=== PATIENT | female | born 1995 | race Caucasian/White ===

== ENCOUNTER 2020-06-22 11:12 | Inpatient (IN) ==
[2020-06-22] MEDS ORDERED: INSULIN REGULAR, HUMAN 1 UNIT/0.01 ML UNIT IV ONE (11:59)
[2020-06-22] MEDS ORDERED: INSULIN REGULAR, HUMAN 50 UNIT in 0.9 % SODIUM CHLORIDE 99.5 ML IV SCH ×2 (12:00→16:15)
--- NOTE | 2020-06-22 12:10 | Emergency Department Note ---
HPI General Chief complaint: Blood Sugar Problem Stated complaint: Nausea, Fatigue, Increased Thirst Time Seen by Provider: 06/22/20 11:34 Source: patient Mode of arrival: ambulatory Limitations: no limitations History of Present Illness HPI Narrative: Is a 25-year-old female patient who presents with hyperglycemia. She went to her PCPs office yesterday for bilateral ear pain and congestion and mentioned an unintentional 25 pound weight loss in the last 3 months. He checked her blood sugar and it was over 500. He called her back this morning asked her to come to the ED for evaluation. Her blood sugar is 371 on [id number] today. She denies a history of diabetes, or familial history of diabetes. She denies recent illness. The only medication she takes is spironolactone for acne. She denies polyuria or polydipsia. She states she stays hydrated drinking about 120 ounces a day routinely. Her water intake needs have not increased. She does endorse some generalized fatigue. She has been complaining of some chest palpitations over the last week. Her heart rate is in the 150s on my exam today. Related Data Home Medications Medication Instructions Recorded Confirmed spironolactone 50 mg tablet 50 mg PO BID 06/21/20 06/22/20 Previous Rx's Medication Instructions Recorded amoxicillin 500 mg capsule 500 mg PO BID #14 cap 06/21/20 fluticasone propionate 50 2 spray INTRANASAL QDAY #15.8 ml 06/21/20 mcg/actuation nasal spray,suspension Allergies Allergy/AdvReac Type Severity Reaction Status Date / Time No Known Drug Allergies Allergy Verified 06/22/20 11:25 Review of Systems ROS ROS Narrative: Narrative: All systems ED: reviewed and negative except as stated. PFSH Narrative Patient History Narrative: Narrative: Medical/Surgical/Family History All Active Problems DKA (diabetic ketoacidoses) (Acute) CARLOS (acute kidney injury) (Acute) Acute dehydration (Acute) Atrial tachycardia (Acute) Back pain (Chronic ~2016) Joint pain (Chronic ~2010) Insomnia (Chronic ~2014) Anemia (Chronic ~2010) Left wrist sprain (Acute) Medical History Anemia (Chronic ~2010) Back pain (Chronic ~2016) Insomnia (Chronic ~2014) Joint pain (Chronic ~2010) Left wrist sprain (Acute) Surgical History No pertinent past surgical history (Acute) Family History Mother Arthritis Grandmother Dementia Paternal Thyroid disease Maternal Social History Smoking Status: Never smoker Alcohol Intake Frequency: a few times a month Substance Use: does not use Exam Narrative Narrative: General: AOx3, NAD, nontoxic appearing. Pleasant and conversant. Thin HEENT: PERRLA, EOMI, normocephalic. Moist mucous membranes. Normal facies and normal dentition. Chest: Symmetric, no pain to palpation Respiratory: Lungs CTAB. No respiratory distress. Unlabored breathing. Heart: Tachycardia 150s, no M/C/R Abdomen: NT, ND, normal bowel tones. No organomegaly. Extremities: Warm and well perfused. No edema. DP 2+ bilaterally. Neuro: No focal deficits. Cranial nerves II-XII normal. Skin: Warm dry, no rashes or lesions, no cyanosis. Psych: Normal mood and affect Hematologic: No bruising General Limitations: no limitations Course Course Course Narrative: 25-year-old female presents with hyperglycemia Reevaluation(s) Reevaluation #1: Basic labs, beta hydroxybutyrate, ABG, microscopic urine, IV fluids, will start insulin infusion for probable DKA Reevaluation #2: Blood work reveals a high anion gap acidosis. Her beta hydroxybutyrate is elevated. These findings are consistent with DKA. Vital Signs Vital signs: Vital Signs Temperature 97.9 F 06/22/20 11:13 Pulse Rate 159 H 06/22/20 11:13 Respiratory Rate 18 06/22/20 11:13 Blood Pressure 107/78 06/22/20 11:13 Pulse Oximetry (%) 97 06/22/20 11:13 Temperature 97.9 F 06/22/20 11:13 Pulse Rate 159 H 06/22/20 11:13 Respiratory Rate 18 06/22/20 11:13 Blood Pressure 89/77 06/22/20 12:01 Pulse Oximetry (%) 97 06/22/20 11:13 [facility] MDM Narrative Medical decision making narrative: DKA: Patient will need admission. She is receiving IV fluids and an insulin drip is been started per DKA protocol. She has mild CARLOS with a creatinine of 1.2, which will hopefully be treated with her continuous IV fluids. Her tachycardia is already improved with fluid interventions. -Admitted inpatient, hospitalist has been contacted Lab Data Result diagrams: 06/22/20 11:55 06/22/20 11:55 Labs: Lab Results 06/22/20 06/22/20 06/22/20 Range/Units 11:55 11:55 11:55 VBG Lactic Acid 1.9 (0.5-2.0) mmol/L Sodium 127 L (133-145) mmol/L Potassium 4.1 (3.3-5.1) mmol/L Chloride 91 L (96-108) mmol/L Carbon Dioxide 10 L* (22-30) mmol/L Anion Gap 26.0 H (8.0-16.0) BUN 12 (6-20) mg/dL Creatinine 1.2 H (0.6-1.1) mg/dL GFR Calculation 64 Glucose 371 H (70-105) mg/dL Hemoglobin A1c 11.3 H (4.0-6.0) % Hgb Estim Average Glucose 278 mg/dL Calcium 10.1 (8.6-10.4) mg/dL Total Bilirubin 1.1 H (0.1-1.0) mg/dL AST 22 (<32) U/L ALT 8 (<40) U/L Alkaline Phosphatase 96 (39-117) U/L Total Protein 8.4 (5.9-8.4) gm/dL Albumin 4.6 (3.2-5.2) gm/dL Globulin 3.8 H (2.2-3.7) gm/dL Albumin/Globulin Ratio 1.2 (1.0-2.3) Beta-Hydroxybutyrate 7.12 H (<0.27) mmol/L Discharge Plan Patient/Caregiver Discharge Instructions Pt seen by EMT DISPATCHER/PA only: Yes Clinical Impression: DKA (diabetic ketoacidoses), CARLOS (acute kidney injury), Acute dehydration, Atrial tachycardia Patient Disposition: Xfer As Inpt ([facility]) Condition: Fair Follow up with: Christopher Yuen PA-C [Primary Care Provider] - Prescriptions: No Action spironolactone 50 mg tablet 50 mg PO BID RF: 0 fluticasone propionate [Flonase Allergy Relief] 50 mcg/actuation spray,suspension 2 spray INTRANASAL QDAY Qty: 15.8 RF: 0 amoxicillin 500 mg capsule 500 mg PO BID Qty: 14 RF: 0
[2020-06-22 12:54] LABS: Estimated Average Glucose(eAG) 278 mg/dL; Hemoglobin A1C 11.3 % Hgb (4.0-6.0)
[2020-06-22 13:15] LABS: ALT/SGPT 8 U/L (<40); AST/SGOT 22 U/L (<32); Albumin 4.6 gm/dL (3.2-5.2); Albumin/Globulin Ratio 1.2 (1.0-2.3); Alkaline Phosphatase 96 U/L (39-117); Bilirubin,Total 1.1 mg/dL (0.1-1.0); Blood Urea Nitrogen 12 mg/dL (6-20); Calcium 10.1 mg/dL (8.6-10.4); Chloride 91 mmol/L (96-108); Globulin 3.8 gm/dL (2.2-3.7); Glomerular Filtration Rate 64; Glucose 371 mg/dL (70-105)
[2020-06-22 13:29] LABS: Carbon Dioxide 10 mmol/L (22-30)
[2020-06-22] MEDS ORDERED: ONDANSETRON 4 MG/2 ML VIAL IV PRN ×2 (15:02→16:15)
[2020-06-22] MEDS ORDERED: ACETAMINOPHEN 160 MG/5 ML ORAL.SOL PT PRN (15:02)
[2020-06-22] MEDS ORDERED: NACL 0.9% W/KCL 20MEQ 1,000 ML IV SCH ×2 (15:15→16:15)
[2020-06-22] MEDS ORDERED: INSULIN REGULAR, HUMAN 50 UNIT in 0.9 % SODIUM CHLORIDE 100 ML IV SCH ×2 (15:15→16:15)
--- NOTE | 2020-06-22 15:20 | Internal Med History&Physical ---
HPI History of Present Illness Patient information: Note initiated : 06/22/20 at 3:16 pm Service Date, if different from initiated Date: [] Patient: Guera Chavez a 25 y/o F admitted on for Nausea, Fatigue, Increased Thirst. Chief Complaint: [] History of present illness: Ms. Chavez is a 25 year old F with no significant past medical history who was referred to the ER by PCP due to hypoglycemia. Patient went to see PCP yesterday due to both ear pain. She was diagnosed with otitis media which was treated the with amoxicillin. She also was found to have will hypoglycemia, 500. As per patient, she has lost 20 pounds over the few months. She denies polyuria or polydipsia. Denies history of diabetes and diabetes in the family. In the ER, glucose was 371, pH is 7.27, anion gap 24. Insulin bolus was given. When I saw this patient in the ER, other than problems mentioned above, she also complained of mild nausea and dizziness. Otherwise she denied headache, shortness of breath, chest pain, abdominal pain, fever, chills, or dysuria. Review of Systems Review of systems: Positive for high sugar level and dizziness. All other systems were reviewed and negative. PFSH PFSH All Active Problems DKA (diabetic ketoacidoses) (Acute) CARLOS (acute kidney injury) (Acute) Acute dehydration (Acute) Atrial tachycardia (Acute) Back pain (Chronic ~2016) Joint pain (Chronic ~2010) Insomnia (Chronic ~2014) Anemia (Chronic ~2010) Left wrist sprain (Acute) Medical History Anemia (Chronic ~2010) Back pain (Chronic ~2016) Insomnia (Chronic ~2014) Joint pain (Chronic ~2010) Left wrist sprain (Acute) Surgical History No pertinent past surgical history (Acute) Family History Mother Arthritis Grandmother Dementia Paternal Thyroid disease Maternal Social History marital status: single occupational status: [place] [employer] [place] status: Never smoker alcohol intake frequency: a few times a month substance use type: does not use MEDS/ALLERGIES Home Medications and Allergies Home Medications Medication Instructions Recorded Confirmed Type amoxicillin 500 mg capsule 500 mg PO BID #14 cap 06/21/20 06/22/20 Rx fluticasone propionate 50 2 spray INTRANASAL QDAY #15.8 ml 06/21/20 06/22/20 Rx mcg/actuation nasal spray,suspension spironolactone 50 mg tablet 50 mg PO BID 06/21/20 06/22/20 History Allergies Allergy/AdvReac Type Severity Reaction Status Date / Time No Known Drug Allergies Allergy Verified 06/22/20 11:25 EXAM Constitutional Vitals: Temp Pulse Resp BP Pulse Ox 97.9 F 159 H 18 89/77 97 06/22/20 11:13 06/22/20 11:13 06/22/20 11:13 06/22/20 12:01 06/22/20 11:13 Additional findings Additional findings: General -thin, no acute distress Eyes - PERRLA, EOM intact ENT no rhinorrhea, no noticeable or palpable swelling Neck supple, no JVD, no thyromegaly Respiratory: Lungs -clear, no wheezing or crackles. Cardiovascular - RRR no m/r/g, GI - Normal bowel sounds, no distended, soft. Extremeties - No edema, cyanosis or clubbing Hemo/lymphatic/immune no lymphadenopathy Neurological Alert and oriented x 3, no focal neurological deficits. Psychiatry flat affect DATA Data Completed and Pending Labs: Labs from last 24 hours 06/22/20 06/22/20 06/22/20 11:55 11:55 11:55 WBC RBC Hgb Hct MCV MCH MCHC RDW Plt Count MPV Platelet Estimate RBC Morphology VBG Lactic Acid 1.9 Sodium 127 L Potassium 4.1 Chloride 91 L Carbon Dioxide 10 L* Anion Gap 26.0 H BUN 12 Creatinine 1.2 H GFR Calculation 64 Glucose 371 H Hemoglobin A1c 11.3 H Estim Average Glucose 278 Calcium 10.1 Total Bilirubin 1.1 H AST 22 ALT 8 Alkaline Phosphatase 96 Total Protein 8.4 Albumin 4.6 Globulin 3.8 H Albumin/Globulin Ratio 1.2 Beta-Hydroxybutyrate 7.12 H 06/22/20 11:55 WBC Pending RBC Pending Hgb Pending Hct Pending MCV Pending MCH Pending MCHC Pending RDW Pending Plt Count Pending MPV Pending Platelet Estimate Pending RBC Morphology Pending VBG Lactic Acid Sodium Potassium Chloride Carbon Dioxide Anion Gap BUN Creatinine GFR Calculation Glucose Hemoglobin A1c Estim Average Glucose Calcium Total Bilirubin AST ALT Alkaline Phosphatase Total Protein Albumin Globulin Albumin/Globulin Ratio Beta-Hydroxybutyrate A/P Narrative A/P Narrative: 1. DKA Could be triggered by otitis media Chest x-ray Urinalysis Corrected Na: 131-134, pH 7.27, HCO3 10, A DKA protocol initiated insulin drip 0.08u/kg/hr KCl 20mEq + NS 1000ml 125ml/hr BMP Q2hrs POT finger G Q1hr 2. DM, new. Hba1c 11.3 Diabetes education 3. Otitis media Continue amoxicillin 4. Sinus tachycardia Could be due to dehydration or DKA Monitor 5. Dehydration IV fluid 6. CARLOS, creatinine 1.2. It was 1.1 on 06/21/2020 Intake and output Repeat renal function in morning 7. DVT prophylaxis: Lovenox 8. 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
[2020-06-22] MEDS ORDERED: ACETAMINOPHEN 325 MG TABLET PO PRN (15:30)
--- NOTE | 2020-06-22 16:10 | XRay Report ---
CLINICAL INFORMATION: DKA COMPARISON: 05/31/2014 TECHNIQUE: Portable FINDINGS: The heart size, mediastinum and pulmonary vessels are unremarkable. The lungs are clear. There are no effusions. The bones and soft tissues are within normal limits. IMPRESSION: Normal chest. Interpreted and Authenticated by: Josue Pandya 06/22/20
[2020-06-22] MEDS ORDERED: 0.9 % SODIUM CHLORIDE 1,000 ML IV ONE (16:49)
[2020-06-22 16:53] LABS: Blood Urea Nitrogen 11 mg/dL (6-20); Carbon Dioxide 13 mmol/L (22-30); Chloride 98 mmol/L (96-108); Glomerular Filtration Rate 90; Glucose 202 mg/dL (70-105); Phosphorous 2.2 mg/dL (2.5-4.5)
[2020-06-22] MEDS ORDERED: DEXTROSE 5%-NS 1,000 ML IV SCH (17:15)
[2020-06-22 17:32] LABS: Hematocrit 53.1 % (36.0-48.0); Hemoglobin 18.9 g/dL (12.0-15.0); Mean Cell Volume 83.4 fL (80.0-100.0); Mean Corpuscular HGB Conc 35.6 g/dL (31.0-36.0); Mean Platelet Volume 11.8 fL (7.4-10.4); Platelet Count 275 K/mcL (140-440); RBC 6.37 M/mcL (4.00-5.20); Red Cell Distribution Width 12.5 % (11.5-14.5); WBC 8.7 K/mcL (4.5-11.0)
[2020-06-22] MEDS ORDERED: 0.9 % SODIUM CHLORIDE 1,000 ML IV SCH (17:45)
[2020-06-22 18:00] LABS: Band Neutrophils % 7 % (0-10); Basophils % (Manual) 1 % (0-2); Eosinophils % (Manual) 2 % (0-7); Lymphocytes % 12 % (15-49); Monocytes % (Manual) 8 % (1-12); Platelet Estimate NORMAL (Normal); RBC Morphology NORMAL (Normal); Reactive Lymphocytes 3 % (0-2); Segmented Neutrophils % 67 % (38-78)
[2020-06-22 18:06] LABS: Appearance,Urine CLEAR (Clear); Bilirubin,Urine Negative (Negative); Color,Urine YELLOW; Culture Indicated,Urine No; Glucose,Urine (UA) >=500 mg/dL (Negative); Ketones,Urine 80 mg/dL (Negative); Leukocyte Esterase,Urine Negative /ug (Negative); Mucus,Urine FEW /hpf; Nitrate,Urine Negative (Negative); Protein,Urine >=500 mg/dL (Negative); Specific Gravity,Urine 1.037 (1.000-1.035); Urine Blood 0.03 mg/dL (Negative); Urine Hyaline Cast 40 /lph (0-2); Urine RBC 4 /hpf (0-3); Urine Squamous Epithelial Cell 7 /hpf (0-4); Urine Transitional Epi Cells < 1 /hpf (0-2); Urine WBC 24 /hpf (0-4); Urobilinogen,Urine Negative
[2020-06-22 19:04] LABS: POC Calcium, Ionized 1.17 mmEq/L (1.16-1.32); POC Creatinine 0.7 mg/dL (0.6-1.2); POC Potassium 3.6 mEql/L (3.3-5.1)
[2020-06-22] MEDS: 0.9 % SODIUM CHLORIDE 10 ML SYRINGE IV SCH (20:35)
[2020-06-22] MEDS: AMOXICILLIN 250 MG CAPSULE PO SCH (20:55)
[2020-06-22 21:27] LABS: POC Calcium, Ionized 1.14 mmEq/L (1.16-1.32); POC Creatinine 0.5 mg/dL (0.6-1.2); POC Potassium 3.5 mEql/L (3.3-5.1)
[2020-06-22] MEDS ORDERED: 0.9 % SODIUM CHLORIDE 10 ML SYRINGE IV SCH (22:00)
[2020-06-22 22:59] LABS: POC Calcium, Ionized 1.18 mmEq/L (1.16-1.32); POC Creatinine 0.5 mg/dL (0.6-1.2); POC Potassium 3.3 mEql/L (3.3-5.1)
[2020-06-22 23:57] LABS: Blood Urea Nitrogen 11 mg/dL (6-20); Calcium 7.2 mg/dL (8.6-10.4); Carbon Dioxide 15 mmol/L (22-30); Chloride 105 mmol/L (96-108); Glomerular Filtration Rate 104; Glucose 249 mg/dL (70-105)
[2020-06-23] MEDS ORDERED: POTASSIUM CHLORIDE 20 MEQ in DEXTROSE 5% IN WATER 250 ML IV ONE (00:40)
[2020-06-23] MEDS ORDERED: DEXTROSE 5%-NS W/20MEQ KCL 1,000 ML IV SCH (00:45)
[2020-06-23 00:55] LABS: POC Calcium, Ionized 1.22 mmEq/L (1.16-1.32); POC Creatinine 0.5 mg/dL (0.6-1.2); POC Potassium 3.2 mEql/L (3.3-5.1)
[2020-06-23] MEDS ORDERED: POTASSIUM CHLORIDE 20 MEQ/10 ML VIAL IV ONE (00:55)
[2020-06-23 02:33] LABS: POC Calcium, Ionized 1.23 mmEq/L (1.16-1.32); POC Creatinine 0.5 mg/dL (0.6-1.2); POC Potassium 3.9 mEql/L (3.3-5.1)
[2020-06-23 04:41] LABS: POC Calcium, Ionized 1.25 mmEq/L (1.16-1.32); POC Creatinine 0.5 mg/dL (0.6-1.2); POC Potassium 3.7 mEql/L (3.3-5.1)
[2020-06-23] MEDS: 0.9 % SODIUM CHLORIDE 10 ML SYRINGE IV SCH ×3 (05:16→21:06)
[2020-06-23 06:47] LABS: POC Calcium, Ionized 1.24 mmEq/L (1.16-1.32); POC Creatinine 0.6 mg/dL (0.6-1.2); POC Potassium 3.5 mEql/L (3.3-5.1)
[2020-06-23] MEDS ORDERED: PANTOPRAZOLE 40 MG TABLET PO SCH (07:30)
[2020-06-23] MEDS: PANTOPRAZOLE 40 MG TABLET PO SCH (07:54)
[2020-06-23] MEDS: AMOXICILLIN 250 MG CAPSULE PO SCH ×3 (07:54→21:06)
[2020-06-23] MEDS: ENOXAPARIN 40 MG/0.4 ML SYRINGE SQ SCH (07:54)
[2020-06-23] MEDS ORDERED: ENOXAPARIN 40 MG/0.4 ML SYRINGE SQ SCH (09:00)
[2020-06-23] MEDS ORDERED: DEXTROSE 31 GM ORAL.SUSP PO PRN (09:11)
[2020-06-23] MEDS ORDERED: DEXTROSE 50% 50 ML VIAL IV PRN (09:11)
[2020-06-23] MEDS ORDERED: DEXTROSE 5%-1/2NS W/40MEQ KCL 1,000 ML IV SCH (09:15)
[2020-06-23] MEDS: INSULIN GLARGINE, HUMAN 1 UNIT/0.01 ML SQ SCH (09:31)
[2020-06-23] MEDS ORDERED: FLU VACC QS2020-21(6MOS UP)/PF 60 MCG/0.5 ML SYRINGE IM ONE (10:00)
[2020-06-23] MEDS: INSULIN LISPRO 1 UNIT/0.01 ML UNIT SQ SCH ×3 (12:04→21:05)
[2020-06-23] MEDS: POTASSIUM CHLORIDE 40 MEQ in DEXTROSE 5%-1/2NS 1,000 ML IV SCH ×2 (12:04→22:21)
[2020-06-23] MEDS ORDERED: 0.9 % SODIUM CHLORIDE 500 ML IV ONE (13:01)
[2020-06-23] MEDS ORDERED: MAGNESIUM SULFATE 24.36 MEQ in DEXTROSE 5% IN WATER 50 ML IV ONE (13:01)
[2020-06-23] MEDS ORDERED: MAGNESIUM SULFATE 8.12 MEQ/2 ML VIAL ONE (13:22)
--- NOTE | 2020-06-23 15:40 | Internal Med Progress Note ---
SUBJECTIVE Subjective Patient information: Note initiated : 06/23/20 at 3:35 pm Service Date, if different from initiated Date: [] Patient: Guera Chavez a 25 y/o F admitted on 06/22/20 for Nausea, Fatigue, Increased Thirst. Chief Complaint: [] Ms. Chavez is a 25 year old F with no significant past medical history who was referred to the ER by PCP due to hypoglycemia. Patient went to see PCP ye sterday due to both ear pain. She was diagnosed with otitis media which was treated the with amoxicillin. She also was found to have will hypoglycemia, 500. As per patient, she has lost 20 pounds over the few months. She denies polyuria or polydipsia. Denies history of diabetes and diabetes in the family. In the ER, glucose was 371, pH is 7.27, anion gap 24. Insulin bolus was given. When I saw this patient in the ER, other than problems mentioned above, she also complained of mild nausea and dizziness. Otherwise she denied headache, shortness of breath, chest pain, abdominal pain, fever, chills, or dysuria. 06/23 Patient does not have any complaints. She is hungry. Denies nausea, vomiting, or abdominal pain. Patient still has a tachycardia at times Sodium will 140, potassium 3.5, bicarbonate 18, Anion gap 12 Lantus 5 units daily, will stop insulin drip Insulin SS Review of Systems Review of systems: Positive for high sugar level and dizziness. All other systems were reviewed and negative. Constitutional Vitals: Vital Signs Temp Pulse Resp BP Pulse Ox 98.4 F 104 H 16 108/73 99 06/23/20 12:00 06/23/20 15:23 06/23/20 15:23 06/23/20 14:00 06/23/20 15:23 Period Temp Pulse Resp BP Sys/Knight Pulse Ox Last 24 Hr 97.2 F-98.5 F 87-124 8-18 97-117/58-90 98-100 Intake and Output 06/23/20 06/23/20 06/23/20 05:59 13:59 21:59 Intake Total 1270 1290 360 Output Total 0 300 Balance 1270 990 360 Intake & Output: Intake & Output 06/23/20 06/23/20 06/23/20 05:59 13:59 21:59 Intake Total 1270 1290 360 Output Total 0 300 Balance 1270 990 360 Intake: IV 1270 930 Dextrose 5%-Ns IV Solution 1, 1000 000 ml @ 100 mls/hr IV .Q10H [facility] Rx#:[id number] Dextrose 5%-Ns W/20Meq KCl 1, 915 000 ml @ 100 mls/hr IV .Q10H [facility] Rx#:[id number] HumuLIN R 50 UNIT In Sodium 10 15 Chloride 0.9% 99.5 ml @ 2 UNIT/ HR 4 mls/hr IV DUR [facility] Rx#: [id number] Potassium Chloride 20 Meq In 260 Dextrose 5% in Water 250 ml @ 130 mls/hr IV ONCE ONE Rx#: [id number] Oral 360 360 Output: Void Amount 0 300 Other: Meal Lunch Percent of Meal Consumed 100% Feeding Ability Independent Urine Appearance Clear Urine Color Dark Sia Dark Sia Urine Odor Normal Additional findings Additional findings: General -thin, no acute distress Eyes - PERRLA, EOM intact ENT no rhinorrhea, no noticeable or palpable swelling Neck supple, no JVD, no thyromegaly Respiratory: Lungs -clear, no wheezing or crackles. Cardiovascular - RRR no m/r/g, GI - Normal bowel sounds, no distended, soft. Extremeties - No edema, cyanosis or clubbing Hemo/lymphatic/immune no lymphadenopathy Neurological Alert and oriented x 3, no focal neurological deficits. Psychiatry flat affect OBJ DATA Labs CBC & Chem 7: 06/22/20 11:55 06/23/20 12:00 Labs: Abnormal Lab Results 06/23/20 06/23/20 06/23/20 12:00 06:33 04:29 RBC Hgb Hct POC Hct 33 L 33 L MPV Lymphocytes % Reactive Lymphocytes Sodium POC Potassium POC Chloride 110 H 111 H Chloride Carbon Dioxide POC Total CO2 18 L 17 L Anion Gap Creatinine POC Creatinine 0.5 L Glucose POC Glucose 184 H 212 H Hemoglobin A1c Calcium POC WB Ioniz Calcium Phosphorus Magnesium 1.4 L Total Bilirubin Globulin Beta-Hydroxybutyrate Ur Specific [place] Urine Protein Urine Glucose (UA) Urine Ketones Urine RBC Urine WBC Ur Squamous Epith Cells Hyaline Casts Urine Mucus 06/23/20 06/23/20 06/22/20 02:22 00:40 22:45 RBC Hgb Hct POC Hct 33 L 34 L MPV Lymphocytes % Reactive Lymphocytes Sodium POC Potassium 3.2 L POC Chloride 110 H 110 H Chloride Carbon Dioxide 15 L POC Total CO2 16 L 17 L Anion Gap Creatinine POC Creatinine 0.5 L 0.5 L Glucose 249 H POC Glucose 186 H 203 H Hemoglobin A1c Calcium 7.2 L POC WB Ioniz Calcium Phosphorus Magnesium Total Bilirubin Globulin Beta-Hydroxybutyrate Ur Specific [place] Urine Protein Urine Glucose (UA) Urine Ketones Urine RBC Urine WBC Ur Squamous Epith Cells Hyaline Casts Urine Mucus 06/22/20 06/22/20 06/22/20 22:45 20:30 18:28 RBC Hgb Hct POC Hct 34 L MPV Lymphocytes % Reactive Lymphocytes Sodium POC Potassium POC Chloride 109 H Chloride Carbon Dioxide POC Total CO2 16 L 14 L 17 L Anion Gap Creatinine POC Creatinine 0.5 L 0.5 L Glucose POC Glucose 240 H 198 H 165 H Hemoglobin A1c Calcium POC WB Ioniz Calcium 1.14 L Phosphorus Magnesium Total Bilirubin Globulin Beta-Hydroxybutyrate Ur Specific [place] Urine Protein Urine Glucose (UA) Urine Ketones Urine RBC Urine WBC Ur Squamous Epith Cells Hyaline Casts Urine Mucus 06/22/20 06/22/20 06/22/20 17:14 15:54 11:55 RBC Hgb Hct POC Hct MPV Lymphocytes % Reactive Lymphocytes Sodium 131 L POC Potassium POC Chloride Chloride Carbon Dioxide 13 L POC Total CO2 Anion Gap 20.0 H Creatinine POC Creatinine Glucose 202 H POC Glucose Hemoglobin A1c Calcium POC WB Ioniz Calcium Phosphorus 2.2 L Magnesium Total Bilirubin Globulin Beta-Hydroxybutyrate 7.12 H Ur Specific [place] 1.037 H Urine Protein >=500 A Urine Glucose (UA) >=500 A Urine Ketones 80 A Urine RBC 4 H Urine WBC 24 H Ur Squamous Epith Cells 7 H Hyaline Casts 40 H Urine Mucus Few A 06/22/20 06/22/20 11:55 11:55 RBC 6.37 H Hgb 18.9 H Hct 53.1 H POC Hct MPV 11.8 H Lymphocytes % 12 L Reactive Lymphocytes 3 H Sodium 127 L POC Potassium POC Chloride Chloride 91 L Carbon Dioxide 10 L* POC Total CO2 Anion Gap 26.0 H Creatinine 1.2 H POC Creatinine Glucose 371 H POC Glucose Hemoglobin A1c 11.3 H Calcium POC WB Ioniz Calcium Phosphorus Magnesium Total Bilirubin 1.1 H Globulin 3.8 H Beta-Hydroxybutyrate Ur Specific [place] Urine Protein Urine Glucose (UA) Urine Ketones Urine RBC Urine WBC Ur Squamous Epith Cells Hyaline Casts Urine Mucus Meds: Medications Acetaminophen (Tylenol) 650 mg PO Q6HP PRN; Protocol PRN Reason: Per Pain Protocol/Fever > 101 Amoxicillin (Amoxicillin) 500 mg PO TID [facility] Last Admin: 06/23/20 14:08 Dose: 500 mg Documented by: Dextrose (Dextrose 50%) 0 ml IV UD PRN PRN Reason: Hypoglycemia Diagnostic Test (Pha) (Accu-Chek) 1 each FS [facility] Last Admin: 06/23/20 12:03 Dose: 1 each Documented by: Enoxaparin Sodium (Lovenox) 40 mg SQ DAILY [facility] Last Admin: 06/23/20 07:54 Dose: 40 mg Documented by: Glucose (Insta-Glucose) 15 gm PO PRN PRN PRN Reason: Hypoglycemia Insulin Human Regular 50 unit/ (Sodium Chloride) 100 mls @ 4 mls/hr IV DUR [facility]; Protocol Last Titration: 06/23/20 09:09 Dose: 0.5 unit/hr, 1 mls/hr Documented by: Potassium Chloride 40 meq/ (Dextrose/Sodium Chloride) 1,020 mls @ 100 mls/hr IV Q10H [facility] Last Admin: 06/23/20 12:04 Dose: 100 mls/hr Documented by: Magnesium Sulfate 24.36 meq/ (Dextrose) 56 mls @ 18.667 mls/hr IV ONCE ONE Stop: 06/23/20 16:00 Last Admin: 06/23/20 14:04 Dose: 18.667 mls/hr Documented by: Insulin Glargine (Lantus) 5 unit SQ DAILY [facility] Last Admin: 06/23/20 09:31 Dose: 5 unit Documented by: Insulin Human Lispro (Humalog) 0 unit SQ [facility]; Protocol Last Admin: 06/23/20 12:04 Dose: 4 unit Documented by: Ondansetron HCl (Zofran) 4 mg IV Q6HP PRN; Protocol PRN Reason: Nausea And Vomiting Pantoprazole Sodium (Protonix) 40 mg PO QAMAC [facility] Last Admin: 06/23/20 07:54 Dose: 40 mg Documented by: Sodium Chloride (Saline Flush) 10 ml IV Q8 [facility] Last Admin: 06/23/20 14:04 Dose: Not Given Documented by: A/P Narrative A/P Narrative: 1. DKA Could be triggered by otitis media Chest x-ray -no acute change Urinalysis -does not support UTI Anion gap 12 Discontinue DKA protocol LR 85 cc/h 2. DM, new. Hba1c 11.3 Diabetes education Diabetic diet Lantus 5 units daily Insulin SS 3. Otitis media Continue amoxicillin 4. Sinus tachycardia Could be due to dehydration Monitor IV fluid 5. Dehydration IV fluid 6. CARLOS, creatinine 1.2. It was 1.1 on 06/21/2020 Creatinine normalized Intake and output Repeat renal function in morning 7. DVT prophylaxis: Lovenox 8. 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
[2020-06-23] MEDS: LACTATED RINGERS 1,000 ML IV SCH (16:27)
[2020-06-24] MEDS: LACTATED RINGERS 1,000 ML IV SCH ×2 (03:56→18:36)
[2020-06-24] MEDS: 0.9 % SODIUM CHLORIDE 10 ML SYRINGE IV SCH ×3 (05:27→23:58)
[2020-06-24] MEDS: POTASSIUM CHLORIDE 40 MEQ in DEXTROSE 5%-1/2NS 1,000 ML IV SCH (06:43)
[2020-06-24] MEDS: PANTOPRAZOLE 40 MG TABLET PO SCH (07:18)
[2020-06-24 07:48] LABS: Basophils # (Auto) 0.03 K/mcL (0.00-0.20); Basophils % (Auto) 0.8 % (0.0-2.0); Eosinophils # (Auto) 0.14 K/mcL (0.00-0.70); Eosinophils % (Auto) 3.6 % (0.0-7.0); Hematocrit 32.7 % (36.0-48.0); Hemoglobin 11.6 g/dL (12.0-15.0); Lymphocytes # (Auto) 0.92 K/mcL (1.50-4.80); Lymphocytes % (Auto) 23.7 % (15.0-49.0); Mean Cell Volume 84.1 fL (80.0-100.0); Mean Corpuscular HGB Conc 35.5 g/dL (31.0-36.0); Mean Platelet Volume 11.5 fL (7.4-10.4); Monocytes # (Auto) 0.31 K/mcL (0.10-0.90); Neutrophils % (Auto) 63.9 % (38.0-78.0); Platelet Count 129 K/mcL (140-440); RBC 3.89 M/mcL (4.00-5.20); Red Cell Distribution Width 12.8 % (11.5-14.5); WBC 3.9 K/mcL (4.5-11.0)
[2020-06-24] MEDS: AMOXICILLIN 250 MG CAPSULE PO SCH ×4 (08:02→20:49)
[2020-06-24] MEDS: INSULIN LISPRO 1 UNIT/0.01 ML UNIT SQ SCH ×4 (08:03→21:10)
[2020-06-24] MEDS: ENOXAPARIN 40 MG/0.4 ML SYRINGE SQ SCH (08:03)
[2020-06-24] MEDS: INSULIN GLARGINE, HUMAN 1 UNIT/0.01 ML SQ SCH (08:05)
[2020-06-24 08:08] LABS: ALT/SGPT 5 U/L (<40); AST/SGOT 12 U/L (<32); Albumin 2.7 gm/dL (3.2-5.2); Albumin/Globulin Ratio 1.4 (1.0-2.3); Alkaline Phosphatase 46 U/L (39-117); Bilirubin,Total 0.6 mg/dL (0.1-1.0); Blood Urea Nitrogen 5 mg/dL (6-20); Calcium 7.5 mg/dL (8.6-10.4); Carbon Dioxide 19 mmol/L (22-30); Chloride 100 mmol/L (96-108); Glomerular Filtration Rate 136; Glucose 165 mg/dL (70-105)
[2020-06-24] MEDS ORDERED: 0.9 % SODIUM CHLORIDE 500 ML IV ONE (08:55)
[2020-06-24] MEDS: POTASSIUM CHLORIDE 20 MEQ TABLET PO SCH ×4 (09:21→20:48)
[2020-06-24] MEDS ORDERED: MAGNESIUM SULFATE 2 GM/50 ML BAG IV ONE (10:00)
[2020-06-24] MEDS ORDERED: DEXTROSE 31 GM ORAL.SUSP PO PRN (15:00)
[2020-06-24] MEDS ORDERED: DEXTROSE 50% 50 ML VIAL IV PRN (15:00)
[2020-06-24] MEDS ORDERED: INSULIN REGULAR, HUMAN 50 UNIT in 0.9 % SODIUM CHLORIDE 99.5 ML IV SCH (15:00)
[2020-06-24] MEDS ORDERED: ONDANSETRON 4 MG/2 ML VIAL IV PRN (15:00)
[2020-06-24] MEDS ORDERED: ACETAMINOPHEN 325 MG TABLET PO PRN (15:00)
[2020-06-24 16:40] LABS: Blood Urea Nitrogen 3 mg/dL (6-20); Calcium 7.7 mg/dL (8.6-10.4); Carbon Dioxide 17 mmol/L (22-30); Chloride 107 mmol/L (96-108); Glomerular Filtration Rate 122; Glucose 218 mg/dL (70-105)
--- NOTE | 2020-06-24 16:55 | Internal Med Progress Note ---
SUBJECTIVE Subjective Patient information: Note initiated : 06/24/20 at 4:53 pm Service Date, if different from initiated Date: [] Patient: Guera Chavez a 25 y/o F admitted on 06/22/20 for Nausea, Fatigue, Increased Thirst. Chief Complaint: [] Ms. Chavez is a 25 year old F with no significant past medical history who was referred to the ER by PCP due to hypoglycemia. Patient went to see PCP ye sterday due to both ear pain. She was diagnosed with otitis media which was treated the with amoxicillin. She also was found to have will hypoglycemia, 500. As per patient, she has lost 20 pounds over the few months. She denies polyuria or polydipsia. Denies history of diabetes and diabetes in the family. In the ER, glucose was 371, pH is 7.27, anion gap 24. Insulin bolus was given. When I saw this patient in the ER, other than problems mentioned above, she also complained of mild nausea and dizziness. Otherwise she denied headache, shortness of breath, chest pain, abdominal pain, fever, chills, or dysuria. 06/23 Patient does not have any complaints. She is hungry. Denies nausea, vomiting, or abdominal pain. Patient still has a tachycardia at times Sodium will 140, potassium 3.5, bicarbonate 18, Anion gap 12 Lantus 5 units daily, will stop insulin drip Insulin SS 06/24 Patient still feels weak. Patient has a tachycardia. When she is walking, her heart rate went up to 150. I would like to keep this patient 1 more night and will possibly discharge her tomorrow. Potassium 3.0, magnesium 1.6 Platelets 129 Review of Systems Review of systems: Positive for high sugar level and dizziness. All other systems were reviewed and negative. Constitutional Vitals: Vital Signs Temp Pulse Resp BP Pulse Ox 98.8 F 109 H 20 117/77 100 06/24/20 12:00 06/24/20 15:04 06/24/20 14:00 06/24/20 14:05 06/24/20 15:04 Period Temp Pulse Resp BP Sys/Knight Pulse Ox Last 24 Hr 97.0 F-98.8 F 85-124 10-21 104-124/71-91 98-100 Intake and Output 06/24/20 06/24/20 06/24/20 05:59 13:59 21:59 Intake Total 1375 550 420 Output Total 400 400 Balance 1375 150 20 Weight 59.693 kg Patient Weight 06/25/20 05:59 Weight 59.693 kg Intake & Output: Intake & Output 06/24/20 06/24/20 06/24/20 05:59 13:59 21:59 Intake Total 1375 550 420 Output Total 400 400 Balance 1375 150 20 Weight 59.693 kg Intake: IV 975 550 Sodium Chloride 0.9% 500 ml @ 500 Wide Open IV BOLUS ONE Rx#: [id number] Lactated Ringers 1,000 ml @ 85 975 mls/hr IV .[id number] [facility] Rx#: [id number] Oral 400 0 420 Output: Void Amount 400 400 Other: Meal Breakfast Lunch Percent of Meal Consumed 50% 100% Urine Appearance Sediment Sediment Urine Color Dark Yellow Bright Yellow Urine Odor Strong Strong # Bowel Movements 0 Additional findings Additional findings: General -thin, no acute distress Eyes - PERRLA, EOM intact ENT no rhinorrhea, no noticeable or palpable swelling Neck supple, no JVD, no thyromegaly Respiratory: Lungs -clear, no wheezing or crackles. Cardiovascular - RRR no m/r/g, GI - Normal bowel sounds, no distended, soft. Extremeties - No edema, cyanosis or clubbing Hemo/lymphatic/immune no lymphadenopathy Neurological Alert and oriented x 3, no focal neurological deficits. Psychiatry flat affect OBJ DATA Labs CBC & Chem 7: 06/24/20 07:08 06/24/20 13:59 Labs: Abnormal Lab Results 06/24/20 06/24/20 06/24/20 13:59 07:08 07:08 WBC 3.9 L RBC 3.89 L Hgb 11.6 L Hct 32.7 L POC Hct Plt Count 129 L MPV 11.5 H Lymph # (Auto) 0.92 L Lymphocytes % Reactive Lymphocytes Sodium 132 L POC Potassium Potassium 3.0 L POC Chloride Chloride Carbon Dioxide 17 L 19 L POC Total CO2 Anion Gap BUN 3 L 5 L Creatinine 0.5 L POC Creatinine Glucose 218 H 165 H POC Glucose Hemoglobin A1c Calcium 7.7 L 7.5 L POC WB Ioniz Calcium Phosphorus Magnesium Total Bilirubin Total Protein 4.7 L Albumin 2.7 L Globulin 2.0 L Beta-Hydroxybutyrate Ur Specific [place] Urine Protein Urine Glucose (UA) Urine Ketones Urine RBC Urine WBC Ur Squamous Epith Cells Hyaline Casts Urine Mucus 06/23/20 06/23/20 06/23/20 12:00 06:33 04:29 WBC RBC Hgb Hct POC Hct 33 L 33 L Plt Count MPV Lymph # (Auto) Lymphocytes % Reactive Lymphocytes Sodium POC Potassium Potassium POC Chloride 110 H 111 H Chloride Carbon Dioxide POC Total CO2 18 L 17 L Anion Gap BUN Creatinine POC Creatinine 0.5 L Glucose POC Glucose 184 H 212 H Hemoglobin A1c Calcium POC WB Ioniz Calcium Phosphorus Magnesium 1.4 L Total Bilirubin Total Protein Albumin Globulin Beta-Hydroxybutyrate Ur Specific [place] Urine Protein Urine Glucose (UA) Urine Ketones Urine RBC Urine WBC Ur Squamous Epith Cells Hyaline Casts Urine Mucus 06/23/20 06/23/20 06/22/20 02:22 00:40 22:45 WBC RBC Hgb Hct POC Hct 33 L 34 L Plt Count MPV Lymph # (Auto) Lymphocytes % Reactive Lymphocytes Sodium POC Potassium 3.2 L Potassium POC Chloride 110 H 110 H Chloride Carbon Dioxide 15 L POC Total CO2 16 L 17 L Anion Gap BUN Creatinine POC Creatinine 0.5 L 0.5 L Glucose 249 H POC Glucose 186 H 203 H Hemoglobin A1c Calcium 7.2 L POC WB Ioniz Calcium Phosphorus Magnesium Total Bilirubin Total Protein Albumin Globulin Beta-Hydroxybutyrate Ur Specific [place] Urine Protein Urine Glucose (UA) Urine Ketones Urine RBC Urine WBC Ur Squamous Epith Cells Hyaline Casts Urine Mucus 06/22/20 06/22/20 06/22/20 22:45 20:30 18:28 WBC RBC Hgb Hct POC Hct 34 L Plt Count MPV Lymph # (Auto) Lymphocytes % Reactive Lymphocytes Sodium POC Potassium Potassium POC Chloride 109 H Chloride Carbon Dioxide POC Total CO2 16 L 14 L 17 L Anion Gap BUN Creatinine POC Creatinine 0.5 L 0.5 L Glucose POC Glucose 240 H 198 H 165 H Hemoglobin A1c Calcium POC WB Ioniz Calcium 1.14 L Phosphorus Magnesium Total Bilirubin Total Protein Albumin Globulin Beta-Hydroxybutyrate Ur Specific [place] Urine Protein Urine Glucose (UA) Urine Ketones Urine RBC Urine WBC Ur Squamous Epith Cells Hyaline Casts Urine Mucus 06/22/20 06/22/20 06/22/20 17:14 15:54 11:55 WBC RBC Hgb Hct POC Hct Plt Count MPV Lymph # (Auto) Lymphocytes % Reactive Lymphocytes Sodium 131 L POC Potassium Potassium POC Chloride Chloride Carbon Dioxide 13 L POC Total CO2 Anion Gap 20.0 H BUN Creatinine POC Creatinine Glucose 202 H POC Glucose Hemoglobin A1c Calcium POC WB Ioniz Calcium Phosphorus 2.2 L Magnesium Total Bilirubin Total Protein Albumin Globulin Beta-Hydroxybutyrate 7.12 H Ur Specific [place] 1.037 H Urine Protein >=500 A Urine Glucose (UA) >=500 A Urine Ketones 80 A Urine RBC 4 H Urine WBC 24 H Ur Squamous Epith Cells 7 H Hyaline Casts 40 H Urine Mucus Few A 06/22/20 06/22/20 11:55 11:55 WBC RBC 6.37 H Hgb 18.9 H Hct 53.1 H POC Hct Plt Count MPV 11.8 H Lymph # (Auto) Lymphocytes % 12 L Reactive Lymphocytes 3 H Sodium 127 L POC Potassium Potassium POC Chloride Chloride 91 L Carbon Dioxide 10 L* POC Total CO2 Anion Gap 26.0 H BUN Creatinine 1.2 H POC Creatinine Glucose 371 H POC Glucose Hemoglobin A1c 11.3 H Calcium POC WB Ioniz Calcium Phosphorus Magnesium Total Bilirubin 1.1 H Total Protein Albumin Globulin 3.8 H Beta-Hydroxybutyrate Ur Specific [place] Urine Protein Urine Glucose (UA) Urine Ketones Urine RBC Urine WBC Ur Squamous Epith Cells Hyaline Casts Urine Mucus Meds: Medications Acetaminophen (Tylenol) 650 mg PO Q6HP PRN; Protocol PRN Reason: Per Pain Protocol/Fever > 101 Amoxicillin (Amoxicillin) 500 mg PO TID [facility] Last Admin: 06/24/20 15:38 Dose: 500 mg Documented by: Dextrose (Dextrose 50%) 0 ml IV UD PRN PRN Reason: Hypoglycemia Diagnostic Test (Pha) (Accu-Chek) 1 each FS ACHS [facility] Enoxaparin Sodium (Lovenox) 40 mg SQ DAILY [facility] Glucose (Insta-Glucose) 15 gm PO PRN PRN PRN Reason: Hypoglycemia Insulin Human Regular 50 unit/ (Sodium Chloride) 100 mls @ 4 mls/hr IV DUR [facility]; Protocol Potassium Chloride 40 meq/ (Dextrose/Sodium Chloride) 1,020 mls @ 100 mls/hr IV Q10H [facility] Lactated Ringer's (Lactated Ringers) 1,000 mls @ 75 mls/hr IV .[id number] [facility] Insulin Glargine (Lantus) 5 unit SQ DAILY [facility] Insulin Human Lispro (Humalog) 0 unit SQ ACHS [facility]; Protocol Ondansetron HCl (Zofran) 4 mg IV Q6HP PRN; Protocol PRN Reason: Nausea And Vomiting Pantoprazole Sodium (Protonix) 40 mg PO QAMAC [facility] Potassium Chloride (Kdur) 20 meq PO Q2 [facility] Sodium Chloride (Saline Flush) 10 ml IV Q8 [facility] A/P Narrative A/P Narrative: 1. DKA resolved 2. DM, new. Hba1c 11.3 Diabetes education Cap Lining Machine Operator consulted Diabetic diet Lantus 5 units daily Insulin SS f/w pcp and endocrinology 3. Otitis media Continue amoxicillin 4. Sinus tachycardia Could be due to dehydration Monitor IV fluid 5. Dehydration IV fluid 6. CARLOS, creatinine 1.2. It was 1.1 on 06/21/2020 resolved Creatinine normalized Intake and output Repeat renal function in morning 7. Electrolytes dearrangement Mag 1.6, potassium 3.0 Mag and potassium were given Repeat BMP and mag 8. DVT prophylaxis: Lovenox 9. CODE STATUS: Planer Setter Spent With Patient Time: Total time spent is greater than 50% in coordination of care (as doc umented) at patient's floor/unit and/or counseling patient:
[2020-06-24] MEDS ORDERED: POTASSIUM CHLORIDE 40 MEQ in DEXTROSE 5%-1/2NS 1,000 ML IV SCH (18:00)
[2020-06-25] MEDS: 0.9 % SODIUM CHLORIDE 10 ML SYRINGE IV SCH (05:15)
[2020-06-25 07:01] LABS: Basophils # (Auto) 0.04 K/mcL (0.00-0.20); Eosinophils # (Auto) 0.16 K/mcL (0.00-0.70); Hematocrit 35.9 % (36.0-48.0); Lymphocytes # (Auto) 1.54 K/mcL (1.50-4.80); Lymphocytes % (Auto) 38.9 % (15.0-49.0); Mean Cell Volume 89.8 fL (80.0-100.0); Mean Corpuscular HGB Conc 33.4 g/dL (31.0-36.0); Mean Platelet Volume 11.2 fL (7.4-10.4); Monocytes # (Auto) 0.45 K/mcL (0.10-0.90); Monocytes % (Auto) 11.4 % (1.0-12.0); Neutrophils % (Auto) 44.7 % (38.0-78.0); Platelet Count 119 K/mcL (140-440); Red Cell Distribution Width 12.8 % (11.5-14.5)
[2020-06-25] MEDS ORDERED: PANTOPRAZOLE 40 MG TABLET PO SCH (07:30)
[2020-06-25 07:55] LABS: ALT/SGPT 5 U/L (<40); AST/SGOT 12 U/L (<32); Albumin 2.7 gm/dL (3.2-5.2); Albumin/Globulin Ratio 1.2 (1.0-2.3); Alkaline Phosphatase 49 U/L (39-117); Bilirubin,Total 0.4 mg/dL (0.1-1.0); Blood Urea Nitrogen 4 mg/dL (6-20); Calcium 8.2 mg/dL (8.6-10.4); Carbon Dioxide 18 mmol/L (22-30); Chloride 104 mmol/L (96-108); Globulin 2.3 gm/dL (2.2-3.7); Glomerular Filtration Rate 128; Glucose 164 mg/dL (70-105)
[2020-06-25] MEDS: LACTATED RINGERS 1,000 ML IV SCH (07:58)
[2020-06-25] MEDS: INSULIN LISPRO 1 UNIT/0.01 ML UNIT SQ SCH ×2 (08:06→12:00)
[2020-06-25] MEDS ORDERED: INSULIN GLARGINE, HUMAN 1 UNIT/0.01 ML SQ SCH (09:00)
[2020-06-25] MEDS ORDERED: ENOXAPARIN 40 MG/0.4 ML SYRINGE SQ SCH (09:00)
[2020-06-25] MEDS: AMOXICILLIN 250 MG CAPSULE PO SCH (09:47)
[2020-06-25] MEDS ORDERED: SODIUM PHOSPHATE 15 MMOL in DEXTROSE 5% IN WATER 250 ML IV ONE (12:23)
--- NOTE | 2020-06-25 12:34 | Discharge Summary ---
Discharge Provider Provider Patient information: Note initiated : 06/25/20 at 12:24 pm Service Date, if different from initiated Date: [] Patient: Guera Chavez 25 y/o F admitted on 06/22/20 for Nausea, Fatigue, Increased Thirst. Chief Complaint: [] Date of admission: 06/22/20 16:13 Discharge date: 06/25/20 Primary care physician: Christopher Yuen PA-C Consults: 06/22/20 Consult to Physician [CONS] Stat Comment: Consulting Provider: Meagan Benavidez Reason For Exam: Physician to Consult Discharge Meds Discharge Medications Home Medications amoxicillin 500 mg capsule 500 mg PO BID #14 cap 06/21/20 [Rx Confirmed 06/22/20 Last Taken 06/22/20] Accu-Chek 1 each .ROUTE ACHS 30 Days #100 ea 06/25/20 [Rx Last Taken Unknown] insulin glargine [Lantus U-100 Insulin] 5 unit SQ DAILY #3 ml 06/25/20 [Rx Last Taken Unknown] insulin lispro [Humalog U-100 Insulin] See Rx Instructions .ROUTE .COMPLEX #30 ml 06/25/20 [Rx Last Taken Unknown] sod phos di, mono-K phos mono [Phospha 250 Neutral] 250 mg PO BID #2 tab 05/31 01/16 [Rx Last Taken Unknown] COURSE Hospital Course Hospital course: Ms. Chavez is a 25 year old F with no significant past medical history who was referred to the ER by PCP due to hypoglycemia. Patient went to see PCP yesterday due to both ear pain. She was diagnosed with otitis media which was treated the with amoxicillin. She also was found to have will hypoglycemia, 500. As per patient, she has lost 20 pounds over the few months. She denies polyuria or polydipsia. Denies history of diabetes and diabetes in the family. In the ER, glucose was 371, pH is 7.27, anion gap 24. Insulin bolus was given. When I saw this patient in the ER, other than problems mentioned above, she also complained of mild nausea and dizziness. Otherwise she denied headache, shortness of breath, chest pain, abdominal pain, fever, chills, or dysuria. 1. DKA resolved 2. DM, new. Hba1c 11.3 Diabetes education Dust Mop Maker consulted Diabetic diet Lantus 5 units daily Insulin SS f/w pcp and endocrinology 3. Otitis media Continue amoxicillin 4. Sinus tachycardia Could be due to dehydration Improving/resolved Monitor IV fluid 5. Dehydration Resolved IV fluid 6. CARLOS, creatinine 1.2. It was 1.1 on 06/21/2020 resolved Creatinine normalized Intake and output Repeat renal function in morning 7. Electrolytes dearrangement Mag 1.6, potassium 3.0 Mag and potassium were given Corrected Repeat BMP and mag 8. Mild hypophosphatemia 2.2 pot phosphate neural 250mg bid Repeat phos in 3 days. Interval history: 06/23 Patient does not have any complaints. She is hungry. Denies nausea, vomiting, or abdominal pain. Patient still has a tachycardia at times Sodium will 140, potassium 3.5, bicarbonate 18, Anion gap 12 Lantus 5 units daily, will stop insulin drip Insulin SS 06/24 Patient still feels weak. Patient has a tachycardia. When she is walking, her heart rate went up to 150. I would like to keep this patient 1 more night and will possibly discharge her tomorrow. Potassium 3.0, magnesium 1.6 Platelets 129 06/25 Today pt feels much better and stronger. She does not have any complaints. Denies nausea, vomiting, diarrhea, headache, dizziness, or abdominal pain. HR improving. Other vital signs are stable and acceptable. Patient was seen by dietitian yesterday. I will discharge this patient to home to follow with PCP within 3 days and endocrinology within 1 week. Patient was educated about diabetes care. I instructed RN to teach her how to inject insulin and use of the device to check her blood sugar. Please check blood sugar before each meal and at bedtime. Adjust insulin based on the sugar levels. If sugar level higher than 400, give insulin and go to the ER. If your blood sugar less than 7o, please drink juice and hold insulin and go to the ER immediately. repeat CBC, CMP, mag and phos in 3 days. Call PCP for medical issues. Discharge diagnosis: DKA, diabetes Time Spent with Patient Time attestation: Total time spent providing and/or coordinating discharge services: EXAM Constitutional Vitals: Temp Pulse Resp BP Pulse Ox 97.6 F 83 16 111/76 100 06/25/20 11:47 06/25/20 11:47 06/25/20 11:47 06/25/20 11:47 06/25/20 11:47 Additional findings Additional findings: General -thin, no acute distress Eyes - PERRLA, EOM intact ENT no rhinorrhea, no noticeable or palpable swelling Neck supple, no JVD, no thyromegaly Respiratory: Lungs -clear, no wheezing or crackles. Cardiovascular - RRR no m/r/g, GI - Normal bowel sounds, no distended, soft. Extremeties - No edema, cyanosis or clubbing Hemo/lymphatic/immune no lymphadenopathy Neurological Alert and oriented x 3, no focal neurological deficits. Psychiatry flat affect Discharge Data Data Completed and Pending Labs on day of discharge: Labs from last 24 hours 06/25/20 06/25/20 06/24/20 04:48 04:48 13:59 WBC 4.0 L RBC 4.00 Hgb 12.0 Hct 35.9 L MCV 89.8 MCH 30.0 MCHC 33.4 RDW 12.8 Plt Count 119 L MPV 11.2 H Neut % (Auto) 44.7 Lymph % (Auto) 38.9 Arthur % (Auto) 11.4 Eos % (Auto) 4.0 Baso % (Auto) 1.0 Lymph # (Auto) 1.54 Arthur # (Auto) 0.45 Eos # (Auto) 0.16 Baso # (Auto) 0.04 Absolute Neutrophils 1.77 L Sodium 138 137 Potassium 3.6 3.5 Chloride 104 107 Carbon Dioxide 18 L 17 L Anion Gap 16.0 13.0 BUN 4 L 3 L Creatinine 0.6 0.7 GFR Calculation 128 122 Glucose 164 H 218 H Calcium 8.2 L 7.7 L Magnesium 2.0 Total Bilirubin 0.4 AST 12 ALT 5 Alkaline Phosphatase 49 Total Protein 5.0 L Albumin 2.7 L Globulin 2.3 Albumin/Globulin Ratio 1.2 Preliminary micro results at discharge 06/22/20 15:54 Blood Culture - Preliminary Blood 06/22/20 15:26 Blood Culture - Preliminary Blood Discharge Plan Patient/Caregiver Discharge Instructions Activity: increase activity as tolerated Diet: Consistent Carbohydrate Activity Restrictions/Additional Instructions: follow with PCP within 3 days and endocrinology within 1 week. RN to teach her how to inject insulin and use of the device to check her blood sugar. Please check blood sugar before each meal and at bedtime. Adjust insulin based on the sugar levels. If sugar level higher than 400, give insulin and go to the ER. If your blood sugar less than 7o, please drink juice and hold insulin and go to the ER immediately. repeat CBC, CMP, mag and phos in 3 days. Call PCP for medical issues. Prescriptions: New Accu-Chek 1 each .Route ACHS 30 Days Qty: 100 RF: 0 Lantus U-100 Insulin 100 unit/mL Solution 5 unit SQ DAILY Qty: 3 RF: 0 insulin lispro [Humalog U-100 Insulin] 100 unit/mL Solution See Rx Instructions .ROUTE .COMPLEX Qty: 30 RF: 0 Phospha 250 Neutral 250 mg Tablet 250 mg PO BID Qty: 2 RF: 0 Continued amoxicillin 500 mg capsule 500 mg PO BID Qty: 14 RF: 0 Discontinued spironolactone 50 mg tablet 50 mg PO BID RF: 0 fluticasone propionate [Flonase Allergy Relief] 50 mcg/actuation spray,suspension 2 spray INTRANASAL QDAY Qty: 15.8 RF: 0 Other Ambulatory Orders: Complete Blood Count (Routine) Timeframe: 3 Days Facility: [facility] - Location: Laboratory Ordered By: Meagan Benavdiez Comprehensive Metabolic Panel (Routine) Timeframe: 3 Days Facility: [facility] - Location: Laboratory Ordered By: Meagan Benavidez Magnesium (Routine) Timeframe: 3 Days Facility: [facility] - Location: Laboratory Ordered By: Meagan Benavidez Phosphorous (Routine) Timeframe: 3 Days Facility: [facility] - Location: Laboratory Ordered By: Meagan Benavidez Glucometer (Routine) Location: None Selected Ordered By: Meagan Benavidez Lancets (Routine) Location: None Selected Ordered By: Meagan Benavidez Follow Up Plan Follow up with: Christopher Yuen PA-C [Primary Care Provider] - Unknown [Outside] (follow with PCP within 3 days and endocrinology within 1 week. it infrastructure architect within one week. Dust Mop Maker within one week. ) Patient Disposition: Home, Self-Care Prognosis: Fair Discharge Orders: Discharge Order (Routine); Ordered 06/25/20 Ordered By: Meagan Benavidez
[2020-06-25] MEDS ORDERED: PHOSPHORUS 250 MG TABLET PO SCH (13:00)
[2020-06-25 14:48] LABS: Phosphorous 2.2 mg/dL (2.5-4.5)
== END 2020-06-25 14:28 | disposition home or self-care (01) | DRG 638 ==
LOC: ED 11:12 → ICU 16:13
PROVIDERS: ADMIT Internal Medicine; ATTEND Internal Medicine